=== PATIENT | male | born 1995 | race Caucasian/White ===

== ENCOUNTER 2017-06-02 14:38 | Emergency (ER) | payer MEDICAID | END 2017-06-02 18:15 | disposition left against medical advice (07) | LOC: ER 16:32 | DX: Z48.02 Encounter for removal of sutures (principal); Z53.21 Procedure and treatment not carried out due to patient leaving prior to being seen by health care provider ==

== ENCOUNTER 2017-06-17 10:18 | Emergency (ER) | payer MEDICAID ==
[~2017-06-17] VITALS: Ht 170.2 cm; Wt 75.0 kg
[2017-06-17 15:40] VITALS: BP 122/70
== END 2017-06-17 16:23 | disposition home or self-care (01) ==
LOC: ER 10:18
DX: S71.112D Laceration without foreign body, left thigh, subsequent encounter (principal); X58.XXXD Exposure to other specified factors, subsequent encounter; Y92.89 Other specified places as the place of occurrence of the external cause; Y99.8 Other external cause status
CPT/HCPCS: 99283

== ENCOUNTER 2024-01-24 06:18 | Emergency (ER) | payer MEDICAID ==
[~2024-01-24] VITALS: Ht 170.2 cm; Wt 69.0 kg
[2024-01-24 06:25] VITALS: O2SAT 98
[2024-01-24] MEDS: DEXAMETHASONE 10 MG/ML VIAL PO ONE (07:15)
[2024-01-24] MEDS: FAMOTIDINE 20MG TABLET PO ONE (07:15)
[2024-01-24] MEDS ORDERED: DIPHENHYDRAMINE 50MG CAPSULE PO ONE (07:15)
[2024-01-24] MEDS: ACETAMINOPHEN 325MG TABLET PO ONE (07:15)
[2024-01-24] MEDS: DIPHENHYDRAMINE 25MG CAPSULE PO NR (07:30)
[2024-01-24] MEDS ORDERED: FAMO-135 MT (09:23)
[2024-01-24] MEDS ORDERED: P50 MT (09:23)
[2024-01-24] MEDS ORDERED: DIPH25TA62 MT (09:23)
[2024-01-24 09:41] VITALS: BP 136/82; PULSE 80; RESP 20; TEMP 97.7
== END 2024-01-24 09:42 | disposition home or self-care (01) ==
LOC: ER 06:35
DX: K12.2 Cellulitis and abscess of mouth (principal)
CPT/HCPCS: 99284; Q0163; J1100